=== PATIENT | female | born 1975 | race Caucasian/White ===

== ENCOUNTER 2018-03-01 14:42 | Emergency (ER) | payer OTHER ==
[~2018-03-01] VITALS: Ht 165.1 cm; Wt 99.8 kg
[~2018-03-01 14:42] MED LIST: ADVAIR; ADVAIR 250-501 EACH INH; ALBUTEROL; ALBUTEROL2.5 MG/0.5 IH; ATIVAN0.5 MG PO; AZITHROMYCIN 2250 MG PO; CARAFATE 1 GM TA1 GM PO; CITRATE OF MAG300 ML PO; DOXYCYCLINE; DOXYCYCLINE 10100 M2 PO; DOXYCYCLINE 10100 MG PO; DULERA 200 MCG/13 GM INH; DUONEB 2.5-0.5 M3 ML; FIORICET 50-301 EACH PO; FLAGYL500 MG PO; FLEXERIL PO; FLORINEF ACETA0.1 MG PO; HYDROCODON-ACE1 EAC7 PO; HYDROCODONE-AP1 EAC6 PO; HYDROCODONE-APA1 TA1 PO; IMITREX 50 MG T50 MG; IMITREX4 MG/0.5 M; LEVAQUIN 250 M250 MG PO; LEVOTHYROXIN0.125 M1 PO; LYRICA 75 MG CA75 MG PO; MAXALT10 MG PO; MELOXICAM15 MG PO; MUCINEX600 MG PO; NORCO 5-325 TA1 EAC1 PO; NORCO 5-325 TA1 EACH PO; NORFLEX100 MG PO; OMEPRAZOLE 20 M20 M1 PO; ONDANSETRON HCL4 M2 PO; PHENERGAN 25 MG25 M1 PO; PHENERGAN 25 MG25 M1 RECTAL; PREDNISONE 10 M10 M1 PO; PREDNISONE 20 M20 M1 PO; PREDNISONE50 MG PO; PROAIR HFA8.5 GM IH; PROMETHAZINE-D120 ML PO; PROTONIX40 M2; PROTONIX40 M4 PO; SINGULAIR 10 MG10 M1 PO; SINGULAIR 10 MG10 MG; SINGULAIR4 M1 PO; SYNTHROID175 MCG PO; SYNTHROID200 MCG PO; TOPAMAX 25 MG T25 M1 PO; TOPAMAX50 MG PO; TRAMADOL 50 MG50 MG PO; ULTRAM 50MG TAB50 MG PO; VISTARIL 25 MG25 M1 PO; VITAMIN B-12500 MCG PO; ZANAFLEX4 MG; ZANAFLEX4 MG PO; ZANTAC 150MG T150 M1 PO; ZANTAC 150MG T150 MG PO; ZOFRAN ODT4 MG PO; ZOFRAN4 MG PO; ZOLOFT100 MG PO; ZPAK PO; ZYRTEC10 M4 PO
[2018-03-01] MEDS ORDERED: NORCO 5-325 TA1 EACH PO (16:00)
[2018-03-01 16:12] VITALS: BP 130/79
== END 2018-03-01 16:14 | disposition home or self-care (01) ==
LOC: M.ERS 14:42
DX: M25.511 Pain in right shoulder (principal); Z91.041 Radiographic dye allergy status; Z91.040 Latex allergy status; Z88.8 Allergy status to other drugs, medicaments and biological substances; Z87.891 Personal history of nicotine dependence; Z90.710 Acquired absence of both cervix and uterus

== ENCOUNTER 2018-09-11 17:37 | Emergency (ER) | payer OTHER ==
[~2018-09-11] VITALS: Ht 162.6 cm; Wt 104.3 kg
[2018-09-11] MEDS ORDERED: IBUPROFEN 800800 M1 PO ×2 (17:58→20:10)
[2018-09-11 19:04] LABS: ABSOLUTE BASOPHILS 0.1 thou/uL (0.0-0.2); ABSOLUTE EOSINOPHILS 0.2 thou/uL (0.0-0.7); ABSOLUTE LYMPHOCYTES 2.7 thou/uL (0.8-5.3); ABSOLUTE MONOCYTES 0.6 thou/uL (0.0-1.2); ABSOLUTE NEUTROPHILS 3.3 thou/uL (1.6-8.1); BASOPHILS 1.3 %; EOSINOPHILS 3.4 %; HEMATOCRIT 37.2 % (37.0-47.0); HEMOGLOBIN 12.5 gm/dL (12.0-15.0); LYMPHOCYTES 38.6 %; MCH 33.2 pg (26.0-34.0); MCHC 33.5 g/dL (28.0-37.0); MONOCYTES 8.3 %; MPV 6.8 fl. (7.2-11.1); NUCLEATED RBCS 0 /100WBC; PLATELET COUNT* 519 thou/uL (150-400); POLYS 48.4 %; RBC 3.76 mil/uL (4.20-5.00); RDW-CV 15.6 % (10.5-14.5); WBC 6.9 thou/uL (4.0-11.0)
[2018-09-11 19:12] LABS: CALCIUM 9.3 mg/dL (8.5-10.1); CREATININE 0.7 mg/dL (0.6-1.3); POTASSIUM 3.5 mmol/L (3.5-5.1)
[2018-09-11 19:15] LABS: ALBUMIN 4.1 g/dL (3.4-5.0); TOTAL BILIRUBIN 0.3 mg/dL (<0.1-1.0); TOTAL PROTEIN 8.3 g/dL (6.4-8.2)
[2018-09-11] MEDS ORDERED: MEDROLDOSEPACK PO (20:09)
[2018-09-11] MEDS ORDERED: NORCO 5-325 TA1 EACH PO (20:10)
[2018-09-11 20:40] VITALS: BP 130/75
== END 2018-09-11 20:40 | disposition home or self-care (01) ==
LOC: M.ERS 17:37
PROVIDERS: Nurse Practitioner Family
DX: M54.16 Radiculopathy, lumbar region (principal); Z87.891 Personal history of nicotine dependence; Z88.6 Allergy status to analgesic agent; Z88.8 Allergy status to other drugs, medicaments and biological substances; Z91.041 Radiographic dye allergy status; Z91.040 Latex allergy status; Z90.710 Acquired absence of both cervix and uterus; Z98.890 Other specified postprocedural states

== ENCOUNTER 2019-01-07 11:16 | Emergency (ER) | payer OTHER ==
[~2019-01-07] VITALS: Ht 162.6 cm; Wt 113.4 kg
[~2019-01-07 11:16] MED LIST changes: +IBUPROFEN 800800 M1 PO; +MEDROLDOSEPACK PO
[2019-01-07 12:57] LABS: ABSOLUTE EOSINOPHILS 0.3 thou/uL (0.0-0.7); ABSOLUTE LYMPHOCYTES 3.2 thou/uL (0.8-5.3); ABSOLUTE MONOCYTES 0.6 thou/uL (0.0-1.2); ABSOLUTE NEUTROPHILS 4.5 thou/uL (1.6-8.1); BASOPHILS 0.5 %; EOSINOPHILS 3.6 %; HEMATOCRIT 36.1 % (37.0-47.0); HEMOGLOBIN 12.6 gm/dL (12.0-15.0); LYMPHOCYTES 37.1 %; MCH 33.9 pg (26.0-34.0); MCHC 34.8 g/dL (28.0-37.0); MCV 97.4 fL (80.0-100.0); MONOCYTES 6.4 %; MPV 6.8 fl. (7.2-11.1); NUCLEATED RBCS 0 /100WBC; PLATELET COUNT* 498 thou/uL (150-400); POLYS 52.4 %; RBC 3.71 mil/uL (4.20-5.00); RDW-CV 15.8 % (10.5-14.5); WBC 8.7 thou/uL (4.0-11.0)
[2019-01-07 13:15] LABS: ALBUMIN 3.4 g/dL (3.4-5.0); CALCIUM 8.6 mg/dL (8.5-10.1); CREATININE 0.7 mg/dL (0.6-1.3); TOTAL BILIRUBIN 0.2 mg/dL (<0.1-1.0); TOTAL PROTEIN 7.2 g/dL (6.4-8.2)
[2019-01-07] MEDS ORDERED: NORCO 5-325 TA1 EACH PO (14:30)
[2019-01-07] MEDS ORDERED: MEDROLDOSEPACK PO (14:30)
[2019-01-07] MEDS ORDERED: ZANAFLEX4 MG PO (14:31)
[2019-01-07 14:52] LABS: URINE BILIRUBIN NEGATIVE (Negative); URINE BLOOD NEGATIVE (Negative); URINE CLARITY CLEAR; URINE COLOR YELLOW; URINE GLUCOSE-RANDOM NEGATIVE (Negative); URINE KETONES NEGATIVE (Negative); URINE LEUKOCYTES-REFLEX NEGATIVE (Negative); URINE NITRITE-REFLEX NEGATIVE (Negative); URINE PROTEIN NEGATIVE (Negative); URINE SPECIFIC GRAVITY >= 1.030 (1.005-1.030); URINE UROBILINOGEN 0.2 E.U./dl (0.2-1.0)
[2019-01-07 15:21] VITALS: BP 120/61
== END 2019-01-07 15:22 | disposition home or self-care (01) ==
LOC: M.ERS 11:16
PROVIDERS: Nurse Practitioner Family
DX: S16.1XXA Strain of muscle, fascia and tendon at neck level, initial encounter (principal); M54.16 Radiculopathy, lumbar region; R10.13 Epigastric pain; Z91.041 Radiographic dye allergy status; Z91.040 Latex allergy status; Z88.8 Allergy status to other drugs, medicaments and biological substances; Z88.6 Allergy status to analgesic agent; Z87.891 Personal history of nicotine dependence; Z98.890 Other specified postprocedural states; Z90.710 Acquired absence of both cervix and uterus; Z90.89 Acquired absence of other organs; W18.39XA Other fall on same level, initial encounter; Y92.89 Other specified places as the place of occurrence of the external cause; Y93.89 Activity, other specified; Y99.8 Other external cause status